=== PATIENT | female | born 1995 | race Asian ===

== ENCOUNTER 2020-08-07 19:28 | Emergency (ER) | payer SELFPAY ==
[~2020-08-07] VITALS: Ht 157.5 cm; Wt 100.0 kg
[2020-08-07] MEDS ORDERED: diphenhydrAMINE HCL 25 MG CAPSULE PO ONE (21:30)
[2020-08-07] MEDS ORDERED: PROMETHAZINE 12.5 MG TABLET. PO ONE (21:30)
[2020-08-07] MEDS ORDERED: KETOROLAC 60 MG/2 ML VIAL. IM ONE (21:30)
[2020-08-07] MEDS ORDERED: SUMA50TA3 PO (22:10)
[2020-08-07] MEDS ORDERED: PROC10TA57 PO (22:10)
--- NOTE | 2020-08-07 22:11 | PHYS DOC ---
Past Medical History Past Medical History: Migraines Past Surgical History: No Surgical History Smoking Status: Never Smoker Alcohol Use: None General Adult EDM: Chief Complaint: HEADACHE HPI: HPI: Patient is a 24 year old female with a history of migraine headaches presenting today complaining of 7 out of 10 generalized migraine headache intermittently since yesterday afternoon. Patient denies any vomiting but reports nausea. Denies any fever. Denies this being the worst headache in her life. Reports photosensitivity. States symptoms are consistent with her regular migraine headaches. Review of Systems: Review of Systems: Constitutional: Denies fever or chills. [] Eyes: Denies change in visual acuity. [] HENT: Denies nasal congestion or sore throat. [] Respiratory: Denies cough or shortness of breath. [] Cardiovascular: Denies chest pain or edema. [] GI: Denies abdominal pain, nausea, vomiting, bloody stools or diarrhea. [] : Denies dysuria. [] Musculoskeletal: Denies back pain or joint pain. [] Integument: Denies rash. [] Neurologic: Reports migraine headache, denies focal weakness or sensory changes. [] Psychiatric: Denies depression or anxiety. [] Heart Score: Risk Factors: Risk Factors: DM, Current or recent (<one month) smoker, HTN, HLP, family history of CAD, obesity. Risk Scores: Score 0 - 3: 2.5% MACE over next 6 weeks - Discharge Home Score 4 - 6: 20.3% MACE over next 6 weeks - Admit for Clinical Observation Score 7 - 10: 72.7% MACE over next 6 weeks - Early Invasive Strategies Current Medications: Current Medications Medications (Trade) Dose Ordered Sig/Eva Start Time Stop Time Status Last Admin Dose Admin Diphenhydramine HCl (Benadryl) 25 mg 1X ONCE 08/07/20 21:30 08/07/20 21:31 DC Ketorolac Tromethamine (Toradol Im) 60 mg 1X ONCE 08/07/20 21:30 08/07/20 21:31 DC Promethazine HCl (Phenergan) 25 mg 1X ONCE 08/07/20 21:30 08/07/20 21:31 DC Allergies: Allergies: Allergies Coded Allergies Type Severity Reaction Last Updated Verified No Known Drug Allergies 08/07/20 No Physical Exam: PE: Constitutional: Well developed, well nourished, no acute distress, non-toxic appearance. [] HENT: Normocephalic, atraumatic, bilateral external ears normal, oropharynx moist, no oral exudates, nose normal. [] Eyes: PERRLA, EOMI, conjunctiva normal, no discharge. [] Neck: Normal range of motion, no tenderness, supple, no stridor. [] Cardiovascular:Heart rate regular rhythm, no murmur [] Lungs & Thorax: Bilateral breath sounds clear to auscultation [] Abdomen: Bowel sounds normal, soft, no tenderness, no masses, no pulsatile masses. [] Skin: Warm, dry, no erythema, no rash. [] Back: No tenderness, no CVA tenderness. [] Extremities: No tenderness, no cyanosis, no clubbing, ROM intact, no edema. [] Neurologic: Alert and oriented X 3, normal motor function, normal sensory function, no focal deficits noted. Cranial nerves II through XII intact Psychologic: Affect normal, judgement normal, mood normal. [] Current Patient Data: Labs: Laboratory Tests Test 08/07/20 21:19 POC Urine HCG, Qualitative Hcg negative (Negative) Vital Signs: Vital Signs Date Time Temp Pulse Resp B/P (MAP) Pulse Ox O2 Delivery O2 Flow Rate FiO2 08/07/20 20:00 98.5 85 20 147/85 (105) 97 Room Air 98.5 EKG: EKG: [] Radiology/Procedures: Radiology/Procedures: [] Course & Med Decision Making: Course & Med Decision Making Pertinent Labs and Imaging studies reviewed. (See chart for details) This is a 34-year-old female patient presented to the ED today with a migraine headache that began yesterday and has been going on intermittently since then. Also complaining of nausea and photosensitivity. History of similar headaches, denies anything unusual about the headache today. Negative urine history G, given Toradol, promethazine and Benadryl. Discharge to home. Rx for Imitrex provided. Rx for Compazine provided. Follow-up with PCP. Foster Disclaimer: Foster Disclaimer: This electronic medical record was generated, in whole or in part, using a voice recognition dictation system. Departure Departure Impression: Primary Impression: Migraine headache Qualified Codes: G43.009 - Migraine without aura, not intractable, without status migrainosus Disposition: 01 DC HOME SELF CARE/HOMELESS Condition: STABLE Referrals: NO PCP (PCP) follow up with your doctor in 1-2 weeks Patient Instructions: Migraine Headache Additional Instructions: You were seen for a migraine headache. Take the prescribed medication as ordered. Follow-up with your doctor in 1 to 2 weeks. Scripts Prochlorperazine Maleate (Compazine) 10 Mg Tablet 1 TAB PO Q6HRS, #20 TAB 0 Refills Prov: ZITA OZUNA APRN 08/07/20 Sumatriptan Succinate (IMITREX) 50 Mg Tablet 1 TAB PO UD, #9 TAB 1 Refill Take 1 tablet at the onset of a migraine headache, repeat in 2 hours if pain persist. Do not take more than 2 tablets in 24 hours Prov: ZITA OZUNA APRN 08/07/20 ZITA OZUNA APRN Aug 07, 2020 22:11
[2020-08-07 22:41] VITALS: BP 133/82
== END 2020-08-07 22:57 | disposition home or self-care (01) ==
LOC: ER 19:28
DX: G43.909 Migraine, unspecified, not intractable, without status migrainosus (principal)
CPT/HCPCS: 81025; 96372; 99285; J1885; Q0163; Q0169